=== PATIENT | male | born 1950 | race Caucasian/White ===

== ENCOUNTER → 2017-02-08 | Outpatient (CLI) | payer OTHER ==
[~2017-02-08] MED LIST: ASPI-110 PO; BLUE500T PO; CYCL1TAB29 PO; CYCL20CR TD; FISH1000 PO; HYDR-3533 PO; LANS30CA PO; LORT5TAB PO; LOVA20TA PO; MELO7.5 PO; MELO7.5T PO; MELO7.5T4 PO; MULT-65 PO; OMEG12007 PO; PREV30CA36 PO; ZOCO40TA PO
[2017-02-08 11:05] LABS: AUTOMATED NEUTROPHIL # 3.1 TH/MM3 (1.8-7.7); BASOPHIL % 0.8 % (0.0-2.0); EOSINOPHIL # 0.2 TH/MM3 (0-0.4); EOSINOPHIL % 2.5 % (0.0-4.0); HEMATOCRIT 45.7 % (39.0-51.0); HEMO FLAGS DIFF FINAL; LYMPH % 38.7 % (9.0-44.0); LYMPHOCYTE # 2.5 TH/MM3 (1.0-4.8); MEAN CELL VOLUME 84.1 FL (80.0-100.0); MEAN CORPUSCULAR HEMOGLOBIN 27.5 PG (27.0-34.0); MEAN CORPUSCULAR HGB CONC 32.8 % (32.0-36.0); MONO % 9.4 % (0.0-8.0); NEUT % 48.6 % (16.0-70.0); PLATELET COUNT 225 TH/MM3 (150-450); RED BLOOD COUNT 5.44 MIL/MM3 (4.50-5.90); RED CELL DISTRIBUTION WIDTH 13.7 % (11.6-17.2); WHITE BLOOD COUNT 6.4 TH/MM3 (4.0-11.0)
[2017-02-08 11:46] LABS: ANION GAP 7 MEQ/L (5-15); AST (GOT) 10 U/L (15-37); BICARBONATE 27.3 MEQ/L (21.0-32.0); BLOOD UREA NITROGEN 20 MG/DL (7-18); CHLORIDE 108 MEQ/L (98-107); GLOMERULAR FILTRATION RATE 75 ML/MIN (>89); GLUCOSE,FASTING 90 MG/DL (74-99); POTASSIUM 4.4 MEQ/L (3.5-5.1); SODIUM (NA) 142 MEQ/L (136-145)
[2017-02-08 11:48] LABS: ALT (GPT) 28 U/L (12-78)
[2017-02-08 11:51] LABS: ALKALINE PHOSPHATASE 75 U/L (45-117); TOTAL BILIRUBIN ADULT 1.1 MG/DL (0.2-1.0)
--- NOTE | 2017-02-08 23:51 | EKG ---
Date Performed: 02/08/2017 Time Performed: 10:00:10 PTAGE: 66 years EKG: Sinus rhythm WITH SINUS ARRHYTHMIA NORMAL ECG PREVIOUS TRACING : 02/29/2008 09.08 Compared to prior tracing no significant change DOCTOR: Kash Tinajero Interpretating Date/Time 02/08/2017 23:50:53
== END ==
LOC: CPRE 09:40
PROVIDERS: ATTEND Orthopaedic Surgery
DX: Z01.810 Encounter for preprocedural cardiovascular examination (principal); Z01.812 Encounter for preprocedural laboratory examination; M19.012 Primary osteoarthritis, left shoulder; I49.9 Cardiac arrhythmia, unspecified
CPT/HCPCS: 36415; 80053; 85025; 93005

== ENCOUNTER → 2017-02-17 | Day surgery (SDC) | payer OTHER ==
[~2017-02-17] VITALS: Ht 180.3 cm; Wt 85.3 kg
[~2017-02-17] MED LIST changes: +*ONDANSETRON 4 MG VIAL PERIprocedural Use ONLY ONE; +ACETAMINOPHEN 1000 MG/100 ML 100 ML IV ONE; +ACETAMINOPHEN/HYDROcodone 325 MG/5 MG TAB PO PRN; +BUPIVACAINE HCL PF 0.25% 30 ML VIAL ONE; +CHLORHEXIDINE GLUCONATE 2 % 1 PACK (2 CLOTHS) TOPICAL PRN; +DEXAMETHASONE SOD PHOS 4 MG/ML VIAL IV ONE; +DEXAMETHASONE SOD PHOS PF 10 MG/ML VIAL IV ONE; +EPINEPHrine HCL (1:1000) 1 MG/ML VIAL ONE; +FAMOTIDINE 20 MG/2 ML VIAL ONE; +GLYCOPYRROLATE 1 MG/5 ML SYRINGE IV PUSH ONE; +HYDROmorphone HCL PF 2 MG/ML VIAL ONE; +INSULIN HUMAN REGULAR 1,000 UNITS/10 ML VIAL SQ PRN; +LACTATED RINGER'S 1000 ML INJ 1,000 ML IV ONE; +LACTATED RINGER'S 1000 ML IV PRN; +LIDOCAINE HCL 1% PF 5 ML AMPULE OTHER ONE; +METOPROLOL TARTRATE 25 MG TAB PO PRN; +MIDAZOLAM HCL 2 MG/2 ML VIAL IV ONE; +MORPHINE SULFATE 4 MG/ML INJ IV PUSH PRN; +ONDANSETRON HCL 4 MG/2 ML VIAL IV PRN; +ONDANSETRON HCL 4 MG/2 ML VIAL IV PUSH ONE; +PHENYLEPH/NS 1000 MCG/10 ML SYR IV ONE; +POVIDONE IODINE 5% (ANTISEPSIS KIT) 4 APPLICATIONS EACH NARE PRN; +POVIDONE IODINE 7.5% SCRUB 118 ML BOTTLE TOPICAL SCH; +PROPOFOL 200 MG/20 ML AMP IV ONE; +ROCURONIUM INJ 50 MG/5 ML SYRINGE IV PUSH ONE; +ROPIVACAINE 0.5% PF INJ 30 ML VIAL NERV BLOCK ONE; +SODIUM CHLOR 0.9% 1000 ML INJ 1,000 ML IV SCH; +SODIUM CHLORID 0.9% 500 ML IV PRN; +SODIUM CHLORIDE 0.9% 20 ML VIAL ONE; +SODIUM CHLORIDE 0.9% FLUSH 5 ML FLUSH IVF PRN; +SODIUM CHLORIDE 0.9% FLUSH 5 ML FLUSH IVF SCH; +SUGAMMADEX SODIUM 200 MG/2 ML VIAL IV PUSH ONE; +VANCOMYCIN 1250 MG/NS 250 ML (for 70-84 kg) IV SCH; -ZOCO40TA PO; +ceFAZolin 2 GM PREMIX 50 ML IV SCH; +ePHEDrine/NS 25 MG/5 ML SYR IV ONE
[2017-02-17 18:00] VITALS: BP 135/72; PULSE 63; RESP 18; TEMP 96; O2SAT 95
--- NOTE | 2017-02-17 23:27 | MP ---
cc: GREGORY FULLER DATE OF SURGERY 02/17/17 PREOPERATIVE DIAGNOSIS 1. Full-thickness rotator cuff tear small left shoulder 2. Biceps tendinopathy. 3. Rotator cuff impingement syndrome with a large spur off of the lateral end of the clavicle. POSTOPERATIVE DIAGNOSIS 1. There was no full-thickness tear discernible. There is significant partial damage to the rotator cuff on the articular side. 2. Biceps tendinopathy. 3. Rotator cuff impingement syndrome with a large spur off of the lateral end of the clavicle. OPERATIVE PROCEDURE Arthroscopic surgery left shoulder consisting of the followin. Arthroscopic debridement of the left shoulder joint with synovitis and biceps tenotomy. 2. Acromioplasty and bursectomy left shoulder 3. Co-planing lateral into clavicle (modified Oc procedure) SURGEON Dr. Sheyla Fuller ANESTHESIA General TECHNIQUE After induction of general anesthesia, the patient was carefully placed in left lateral position supported with Biomet hip positioner. Generous padding was used. Well leg was properly padded and protected with folding blankets placed between the legs and the lower body secured to the operating table. The left arm was placed in traction using Arthrex soft goods with 10 pound weight in about 30 degrees of abduction. Axillary roll had been placed. Left shoulder girdle thoroughly prepped with alcohol and ChloraPrep and draped in routine fashion including adherent Ioban drape on the traction apparatus. Bony prominences were marked and the shoulder joint entered through the posterior soft spot. Systematic visualization of joint was carried out. The humeral head was in good shape as far as articular cartilage is concerned. The glenoid also had satisfactory articular cartilage. There was a 1 cm anterior labral tear extending into the biceps attachment. There was severe tendinopathy of the biceps tendon with several fronds of tissue hanging into the joint. Anterior portal established after needling and a shaver was brought in and debridement of the biceps tendon was carried out. Basket forceps were used. Synovectomy and biceps tenotomy were carried out. The subscapularis seemed to have some tear of the superior portion but otherwise intact. There is partial tear in the rotator cuff on the articular side but no full-thickness tear was noted. An 18 gauge needle was passed through the damaged rotator cuff and a 0-PDS suture was passed through it and pulled out through the anterior portal and held with hemostats. The scope was then placed in the subacromial space and a mid lateral portal established. A bursectomy and acromioplasty was carried out. There was a large spurring in the lateral end of the clavicle and that was debrided with a bur. Bursectomy was carried out. Rotator cuff was examined and there was no evidence of full-thickness tear. It took considerable amount of time to examine the entire supraspinatus attachment. The PDS suture helped us out in indicating where the partial tears are. Instrumentation was withdrawn. The portal is closed with interrupted nylon sutures. Dressing is applied with Xeroform, 4x4s, ABD, Medipore tape and a sling was applied. The patient was transferred to recovery room in satisfactory condition. The patient tolerated the procedure well. TRANSFUSIONS AND COMPLICATIONS None. POSTOPERATIVE CONDITION Satisfactory PROGNOSIS Guarded to good. This patient has a low pain tolerance and even in the holding area was complaining of pain in the left shoulder. The biceps tenotomy and the acromioplasty and the modified Oc procedure should give him significant relief of symptoms. MD ARDIANA Hernandez/ /4:34 PM /11:10 PM
== END | disposition home or self-care (01) ==
LOC: HSDC 11:03
PROVIDERS: ATTEND Orthopaedic Surgery
DX: M75.42 Impingement syndrome of left shoulder (principal); M19.012 Primary osteoarthritis, left shoulder; I10 Essential (primary) hypertension; E78.5 Hyperlipidemia, unspecified; N40.0 Benign prostatic hyperplasia without lower urinary tract symptoms; M54.5 Low back pain; K25.9 Gastric ulcer, unspecified as acute or chronic, without hemorrhage or perforation
CPT/HCPCS: 01630; 29824; 29826; J0131; J0171; J0690; J1100; J2250; J2370; J2405; J2795; J3010; J3370; J7050; J7120; J1170